=== PATIENT | male | born 1955 | race Caucasian/White ===

== ENCOUNTER 2023-06-04 12:50 | Emergency (ER) | payer BC, SELFPAY ==
[2023-06-04 13:17] VITALS: BP 146/76; PULSE 73; RESP 16; TEMP 36.1; O2SAT 95; BMI 37.6
[2023-06-04 14:06] LABS: PCR FLU A Negative PCR FLU A (Negative); PCR FLU B Negative PCR FLU B (Negative); PCR RSV Negative PCR RSV (Negative)
[2023-06-04 14:08] LABS: SARS PCR* Negative SARS-CoV-2 (Negative)
--- NOTE | 2023-06-04 15:30 | ED.GENADULT ---
HPI - General Adult General Time Seen by Provider: 15:30 Date Seen: 06/04/23 Chief complaint: Cough Stated complaint: Afib, nausea, cough Time Seen by Provider: 06/04/23 15:30 History of Present Illness HPI narrative: This is a pleasant 67-year-old gentleman with a past medical history of type 2 diabetes, atrial fibrillation, hypertension, dyslipidemia, mild renal insufficiency. He normally receives his medical care at the [facility]. Med list on his [employer] toni includes metoprolol, Eliquis, amiodarone, rosuvastatin, metformin a, semaglutide, insulin. He has no known drug allergies. He is here today with concern that he might be having a renal insufficiency. He did have labs through his primary care doctor at [place] over the past year so, most recently in February that showed a rise in his creatinine from normal at around 1 up to 1.54. Most recent labs were February 23. He notes that for the past several months, since perhaps in February he has been having off and on achiness in his mid back and flanks. He thinks that he is feeling his kidneys hurting. This bothers him almost every day, it is not really worse lately. He is concerned that he is having kidney pain. He does note that he has some chronic trouble getting his urinary stream started.. No hematuria, dysuria, urgency, or frequency. No fevers or chills. Today he is just feeling a bit nauseous. He sometimes gets nausea any often is able to treated with a supply of Zofran ODT that he has at home. He took a Zofran today but it was ineffective. He is not vomiting. He just feels nauseous. He also gets headaches from time to time. He had a mild headache this morning. It is now resolved after Tylenol. He is not having any chest pain. No fever or cough. No trouble breathing. No palpitations. He does not think he is having any AFib. He is concerned that he is nauseous today and he is worried that his kidneys might be shutting down. Related Data Home Medications Medication Instructions Recorded Confirmed amiodarone 200 mg tablet 200 mg PO DAILY 06/04/23 06/04/23 apixaban 5 mg tablet 5 mg PO BID 06/04/23 06/04/23 aspirin 81 mg capsule 81 mg PO DAILY 06/04/23 06/04/23 candesartan 32 mg tablet (Atacand) 32 mg PO DAILY 06/04/23 06/04/23 diltiazem HCl 180 mg 180 mg PO DAILY 06/04/23 06/04/23 capsule,extended release 24 hr (Cardizem CD) ezetimibe 10 mg tablet (Zetia) 10 mg PO DAILY 06/04/23 06/04/23 insulin aspart U-100 .ROUTE 06/04/23 insulin degludec subcut 06/04/23 metformin 1,000 mg tablet 1,000 mg PO BID 06/04/23 06/04/23 metoprolol tartrate 100 mg tablet 100 mg PO DAILY 06/04/23 06/04/23 ondansetron 4 mg disintegrating 4 mg PO Q6H 06/04/23 06/04/23 tablet rosuvastatin 5 mg tablet (Crestor) 5 mg PO DAILY 06/04/23 06/04/23 semaglutide 1 mg/dose (4 mg/3 mL) 0.5 mg subcut QWEEK 06/04/23 06/04/23 subcutaneous pen injector (Ozempic) Previous Rx's Medication Instructions Recorded metoclopramide HCl 10 mg tablet 10 mg PO Q6H PRN nausea and 06/04/23 (Reglan) vomiting #10 tabs Allergies Allergy/AdvReac Type Severity Reaction Status Date / Time No Known Drug Allergies Allergy Verified 06/04/23 13:08 [facility] Social History Non-prescribed substance use: denies use Exam Narrative: Exam Narrative: Constitutional: Appears well-developed and well-nourished. Alert. Conversant. Non toxic. HENT: Head: Atraumatic. Nose: Nose normal. Mouth/Throat: Oral mucosa is clear and moist. no trismus. Pharynx normal. Tonsils symmetric. No tonsillar enlargement, erythema, or exudate. Eyes: Conjunctivae normal. EOM normal. Pupils equal, round, and reactive to light. No scleral icterus. Neck: Normal range of motion. Neck supple. No tracheal deviation present. Cardiovascular: Normal rate, regular rhythm. No gallop. No friction rub. No murmur heard. Symmetric radial artery pulses Pulmonary/Chest: Effort normal. No stridor. No respiratory distress. No wheezes. No rales. No rhonchi . No tenderness. Abdominal: Soft. Bowel sounds normal. No distension. No mass. No pulsatile mass. No tenderness. No rebound. No guarding. No CVA tenderness. Musculoskeletal: RUE: Normal range of motion. No tenderness. No deformity LUE: Normal range of motion. No tenderness. No deformity RLE: Normal range of motion. No edema. No tenderness. No deformity LLE: Normal range of motion. No edema. No tenderness. No deformity No midline tenderness of his T or L-spine. Neurological: Alert and oriented to person, place, and time. Normal strength. CN II-VII intact. No sensory deficit. GCS eye subscore is 4. GCS verbal subscore is 5. GCS motor subscore is 6. Normal coordination Skin: Skin is warm and dry. No rash noted. No pallor. Normal capillary refill. No rash or shingles. Psychiatric: Normal mood. Normal affect. Const: Vital Signs, click to edit/add: Vital Signs - 24 hr 06/04/23 13:17 Temperature 96.9 F L Pulse Rate [Right Pulse Oximeter] 73 Respiratory Rate 16 Blood Pressure [Ri ght Upper Arm] 146/76 H Pulse Oximetry 95 Oxygen Delivery Me thod Room Air Course Vital Signs Vital signs: Initial Vital Signs Temperature 96.9 F L 06/04/23 13:17 Temperature Source Temporal Artery Scan 06/04/23 13:17 Pulse Rate 73 06/04/23 13:17 Respiratory Rate 16 06/04/23 13:17 Blood Pressure 146/76 H 06/04/23 13:17 Blood Pressure Mean 99 06/04/23 13:17 Blood Pressure Position Sitting 06/04/23 13:17 Pulse Oximetry 95 06/04/23 13:17 Oxygen Delivery Method Room Air 06/04/23 13:17 Vital Signs Temperature 96.9 F L 06/04/23 13:17 Pulse Rate 73 06/04/23 13:17 Respiratory Rate 16 06/04/23 13:17 Blood Pressure 146/76 H 06/04/23 13:17 Pulse Oximetry 95 06/04/23 13:17 Oxygen Delivery Method Room Air 06/04/23 13:17 Temperature 96.9 F L 06/04/23 13:17 Pulse Rate 73 06/04/23 13:17 Respiratory Rate 16 06/04/23 13:17 Blood Pressure 146/76 H 06/04/23 13:17 Pulse Oximetry 95 06/04/23 13:17 Oxygen Delivery Method Room Air 06/04/23 13:17 Medical Decision Making MDM Narrative Medical decision making narrative: This is a pleasant 67-year-old gentleman with a past history of diabetes, atrial fibrillation, hypertension. He normally receives medical care through the [facility] but presents to the ER [place] today. He has had symptoms of ongoing bilateral flank/low back pain for the past several months that is been bothersome fairly often. It is bothering him again today but is not necessarily worse than normal. He is also nauseous today. He does note that he has had trouble with nausea off and on for the past several weeks and it is thought that the nausea might be related to his injectable diabetes medication, semagultide. However he did not take his weekly dose of the medication this week. Despite that he is nauseous today. He is concerned that he might be developing renal failure. He does have baseline renal insufficiency with a creatinine of 1.54 on labs from [place] in February. Fortunately today his creatinine is stable/slightly improved down to 1.4. At this point we do not see any sign of UTI on his clean-catch urinalysis. No severe flank pain suggest kidney stone. No anterior abdominal tenderness or mass to suggest AAA. He has had previous cholecystectomy. Abdominal exam is nontender and benign so I do not think this nausea likely represents bowel obstruction, colitis, diverticulitis, or other acute intra-abdominal surgical pathology. CBC normal. Troponin normal/nonischemic. Patient is improved after Reglan here in the ER. He is feels comfortable going home. No signs of dehydration or renal failure. Discussed the cause of his nausea is unclear. Could be a side effect of his his diabetes medicine. He will follow-up with his primary care provider for recheck. Short prescription for p.r.n. Reglan provided. Precautions for return to the ER reviewed. He agrees. Questions answered. Lab Data Labs: Lab Results 06/04/23 06/04/23 06/04/23 Range/Units 13:20 16:00 16:31 WBC 10.17 (4.50-11.00) K/uL RBC 4.91 (4.30-5.90) m/uL Hgb 12.7 L (13.5-17.5) gm/dL Hct 40.5 (37.0-53.0) % MCV 83 (80-100) fL MCH 26 (26-34) pg MCHC 31 L (32-36) gm/dL RDW Coeff of Yadira 13.5 (11.5-15.5) % Plt Count 312 (140-440) K/uL Neut % (Auto) 67.9 (42.0-72.0) % Lymph % (Auto) 19.9 L (20-44) % [place] % (Auto) 7.5 (0.0-11.0) % Eos % (Auto) 3.8 (0.0-7.0) % Baso % (Auto) 0.8 (0.0-3.0) % Neut # (Auto) 6.91 (1.7-7.0) K/uL Lymph # (Auto) 2.00 (0.90-2.90) K/uL [place] # (Auto) 0.80 (0.00-0.90) K/UL Eos # (Auto) 0.39 (0.00-0.50) K/uL Baso # (Auto) 0.08 (0.00-0.30) K/uL Abs Immat Gran (auto) 0.01 (0.00-0.30) K/uL Imm/Tot Granulo (auto) 0.1 % Sodium 138 (135-149) mmol/L Potassium 4.4 (3.6-5.1) mmol/L Chloride 106 (96-114) mmol/L Carbon Dioxide 22 (20-32) mmol/L Anion Gap 10 (7-15) mEq/L BUN 31 H (7-30) mg/dL Creatinine 1.4 (0.5-1.5) mg/dL Estimated Creat Clear 47.21 Estimated GFR 55 ml/min Glucose 146 H (60-115) mg/dL Calcium 9.5 (8.4-10.6) mg/dL Total Bilirubin 0.6 (0.1-1.5) mg/dL AST 25 (12-35) U/L ALT 26 (4-50) U/L Alkaline Phosphatase 91 (40-150) U/L Troponin I < 0.01 L (0.01-0.04) ng/mL Total Protein 7.4 (6.0-8.3) g/dL Albumin 4.3 (3.3-5.0) g/dL Urine Color Yellow (Yellow) Urine Appearance Clear (Clear) Urine pH 6.0 (5.0-8.5) Ur Specific [place] 1.020 (1.000-1.030) Urine Protein Negative (Negative) Urine Glucose (UA) Negative (Negative) Urine Ketones Trace A (Negative) Urine Blood Negative (Negative) Urine Nitrite Negative (Negative) Urine Bilirubin Negative (Negative) Urine Urobilinogen 2.0 A (0.2-1.0) Ur Leukocyte Esterase Negative (Negative) Urine RBC 0-2 (0-2) Urine WBC 0-2 (0-5) Ur Squamous Epith Cells None (None-Few) Urine Bacteria None (None) SARS-CoV-2 (PCR) Negative SARS-CoV-2 (Negative) Influenza Type A (PCR) Negative PCR FLU A (Negative) Influenza Type B (PCR) Negative PCR FLU B (Negative) RSV (PCR) Negative PCR RSV (Negative) ECG Data Attestation: I personally reviewed and interpreted this ECG as follows: Interpretation: Normal sinus rhythm . Rate 70 NV 164 QRS axis normal axis. No pathologic Q-waves. ST segment/T wave: No ST segment elevation or depression. QTc: 423 Discharge Plan Discharge Clinical Impression: Nausea Patient Disposition: Home, Self-Care Condition: Stable Instructions: Acute Nausea and Vomiting (DC) Additional Instructions: Please follow-up with your regular doctor for a checkup within the next 5-7 days. If you have any worsening symptoms such as worsening nausea, vomiting, bloody or black stools, abdominal pain, fever, or any other problems, please return to the ER right away to be rechecked. Prescriptions: New metoclopramide HCl [Reglan] 10 mg tablet 10 mg PO Q6H PRN (Reason: nausea and vomiting) Qty: 10 0RF No Action insulin degludec subcut ondansetron 4 mg tablet,disintegrating 4 mg PO Q6H Ozempic 1 mg/dose (4 mg/3 mL) pen injector 0.5 mg subcut QWEEK candesartan [Atacand] 32 mg tablet 32 mg PO DAILY rosuvastatin [Crestor] 5 mg tablet 5 mg PO DAILY metformin 1,000 mg tablet 1,000 mg PO BID insulin aspart U-100 [Novolog FlexPen U-100 Insulin] .ROUTE ezetimibe [Zetia] 10 mg tablet 10 mg PO DAILY apixaban 5 mg tablet 5 mg PO BID metoprolol tartrate 100 mg tablet 100 mg PO DAILY diltiazem HCl [Cardizem CD] 180 mg capsule,extended release 24hr 180 mg PO DAILY amiodarone 200 mg tablet 200 mg PO DAILY aspirin 81 mg capsule 81 mg PO DAILY Follow Up/Referrals: Inocencio Lerner MD [Staff Physician] - Stand Alone Forms: [employer] Info Instructions
[2023-06-04 16:05] LABS: Basophils Absolute Auto 0.08 K/uL (0.00-0.30); Basophils Percent Auto 0.8 % (0.0-3.0); Eosinophils Absolute Auto 0.39 K/uL (0.00-0.50); Eosinophils Percent Auto 3.8 % (0.0-7.0); Hematocrit 40.5 % (37.0-53.0); Hemoglobin* 12.7 gm/dL (13.5-17.5); Immature Granulocytes Abs Auto 0.01 K/uL (0.00-0.30); Immature Granulocytes Pct Auto 0.1 %; Lymphocytes Percent Auto 19.9 % (20-44); Mean Corpuscular HGB Conc 31 gm/dL (32-36); Mean Corpuscular Hemoglobin 26 pg (26-34); Mean Corpuscular Volume 83 fL (80-100); Monocytes Percent Auto 7.5 % (0.0-11.0); Neutrophils Absolute Auto 6.91 K/uL (1.7-7.0); Neutrophils Percent Auto 67.9 % (42.0-72.0); Platelet Count* 312 K/uL (140-440); RDW Coefficient of Variation % 13.5 % (11.5-15.5); Red Blood Count 4.91 m/uL (4.30-5.90); White Blood Count* 10.17 K/uL (4.50-11.00)
[2023-06-04 16:09] LABS: Slide Review Reflex No
[2023-06-04 16:17] LABS: Albumin* 4.3 g/dL (3.3-5.0); Chloride* 106 mmol/L (96-114)
[2023-06-04 16:18] LABS: Potassium* 4.4 mmol/L (3.6-5.1); Sodium* 138 mmol/L (135-149)
[2023-06-04 16:20] LABS: Alkaline Phosphatase* 91 U/L (40-150); Anion Gap 10 mEq/L (7-15); Aspartate Amino Transferase* 25 U/L (12-35); Bilirubin Total* 0.6 mg/dL (0.1-1.5); Blood Urea Nitrogen* 31 mg/dL (7-30); Carbon Dioxide* 22 mmol/L (20-32); Creatinine* 1.4 mg/dL (0.5-1.5); Est. Creatinine Clearance* 47.21; Estimated Glomerular Filt Rate 55 ml/min; Total Protein* 7.4 g/dL (6.0-8.3)
[2023-06-04 16:21] LABS: Alanine Aminotransferase* 26 U/L (4-50); Calcium* 9.5 mg/dL (8.4-10.6); Glucose* 146 mg/dL (60-115)
[2023-06-04 16:41] LABS: Troponin I* < 0.01 ng/mL (0.01-0.04)
[2023-06-04 16:51] LABS: Appearance Urine Clear (Clear); Bilirubin Urine Negative (Negative); Blood Urine Negative (Negative); Color Urine Yellow (Yellow); Glucose Urine Negative (Negative); Ketones Urine Trace (Negative); Leukocyte Esterase Urine Negative (Negative); Nitrite Urine Negative (Negative); Protein Urine Negative (Negative)
[2023-06-04 16:55] LABS: RBC Urine 0-2 (0-2); WBC Urine 0-2 (0-5)
[2023-06-04] MEDS: METOCLOPRAMIDE 10 MG TABLET PO (17:16)
== END 2023-06-04 18:13 | disposition home or self-care (01) ==
PROVIDERS: Emergency Provider Emergency Medicine
DX: R11.0 Nausea (principal)
CPT/HCPCS: 36415; 80053; 81001; 84484; 85025; 87631; 93005; 99283; 99284; A9270